=== PATIENT | female | born 1985 | race Hispanic/Latino ===

== ENCOUNTER → 2025-02-19 | Outpatient (REF) | payer OTHER | LOC: MAMMO 10:06 | PROVIDERS: ATTEND Family Medicine | DX: Z12.31 Encounter for screening mammogram for malignant neoplasm of breast (principal) | CPT/HCPCS: 77067 ==

== ENCOUNTER → 2025-03-04 | Outpatient (REF) | payer OTHER | LOC: MAMMO 09:46 | PROVIDERS: ATTEND Family Medicine | DX: R92.30 Dense breasts, unspecified (principal) ==